=== PATIENT | female | born 1985 | race American Indian/Alaskan Native ===

== ENCOUNTER 2016-09-17 13:08 | Emergency (ER) | payer SELFPAY ==
[2016-09-17 13:30] VITALS: BP 131/94
== END 2016-09-17 17:19 | disposition left against medical advice (07) ==
LOC: ED 13:08
DX: J02.9 Acute pharyngitis, unspecified (principal); H92.02 Otalgia, left ear; R50.9 Fever, unspecified; Z53.21 Procedure and treatment not carried out due to patient leaving prior to being seen by health care provider